=== PATIENT | male | born 1945 | race Caucasian/White ===

== ENCOUNTER 2023-04-04 13:37 | Inpatient (IN) ==
[2023-04-04 15:28] LABS: Basophils # (Auto) 0.07 K/mcL (0.00-0.30); Basophils % (Auto) 0.9 % (0.0-2.0); Eosinophils # (Auto) 0.05 K/mcL (0.00-0.70); Eosinophils % (Auto) 0.7 % (0.0-7.0); Hematocrit 40.3 % (40.1-51.0); Hemoglobin 14.9 g/dL (13.7-17.5); Lymphocytes # (Auto) 1.24 K/mcL (1.50-4.80); Lymphocytes % (Auto) 16.8 % (15.5-49.0); Mean Cell Volume 93.3 fL (80.0-100.0); Mean Platelet Volume 10.1 fL (8.8-12.5); Monocytes # (Auto) 0.67 K/mcL (0.10-0.90); Monocytes % (Auto) 9.1 % (1.0-12.0); Neutrophils % (Auto) 72.1 % (38.0-78.0); Platelet Count 212 K/mcL (140-440); RBC 4.32 M/mcL (4.63-6.08); Red Cell Distribution Width 12.6 % (11.5-14.5); WBC 7.4 K/mcL (4.5-11.0)
[2023-04-04 15:33] LABS: ALT/SGPT 16 U/L (<40); AST/SGOT 35 U/L (<40); Albumin 3.7 gm/dL (3.2-5.2); Albumin/Globulin Ratio 1.1 (1.0-2.3); Alkaline Phosphatase 135 U/L (39-117); Bilirubin,Total 2.1 mg/dL (0.1-1.0); Blood Urea Nitrogen 5 mg/dL (8-23); Calcium 9.3 mg/dL (8.6-10.4); Carbon Dioxide 20 mmol/L (22-30); Chloride 84 mmol/L (96-108); Globulin 3.4 gm/dL (2.2-3.7); Glomerular Filtration Rate 86; Glucose 102 mg/dL (70-105)
[2023-04-04] MEDS ORDERED: MAGNESIUM SULFATE 2 GM/50 ML BAG IV ONE (17:28)
[2023-04-04] MEDS ORDERED: CARBAMIDE PEROXIDE OTIC SOL 15ML AU ONE (17:30)
[2023-04-04] MEDS ORDERED: ACETAMINOPHEN 325 MG TABLET PO PRN (17:46)
[2023-04-04] MEDS ORDERED: ONDANSETRON 4 MG/2 ML VIAL IV PRN (17:46)
[2023-04-04] MEDS ORDERED: IPRATROPIUM/ALBUTEROL 3 ML AMPUL.NEB NEB PRN (17:46)
[2023-04-04] MEDS ORDERED: hydrALAZINE 20 MG/ML VIAL IV PRN (17:46)
[2023-04-04 18:25] LABS: Thyroid Stimulating Hormone 2.31 uIU/mL (0.27-5.01)
[2023-04-04] MEDS: 0.9 % SODIUM CHLORIDE 1,000 ML IV SCH (18:48)
[2023-04-04] MEDS: DOCUSATE SODIUM 100 MG CAPSULE PO SCH (20:26)
[2023-04-04] MEDS: 0.9 % SODIUM CHLORIDE 10 ML SYRINGE IV SCH (20:26)
[2023-04-05 01:14] LABS: Blood Urea Nitrogen 6 mg/dL (8-23); Carbon Dioxide 20 mmol/L (22-30); Chloride 91 mmol/L (96-108); Glomerular Filtration Rate 91; Glucose 103 mg/dL (70-105)
[2023-04-05] MEDS: 0.9 % SODIUM CHLORIDE 10 ML SYRINGE IV SCH ×3 (06:01→22:21)
[2023-04-05 06:43] LABS: Basophils # (Auto) 0.04 K/mcL (0.00-0.30); Basophils % (Auto) 0.8 % (0.0-2.0); Eosinophils # (Auto) 0.05 K/mcL (0.00-0.70); Hematocrit 38.3 % (40.1-51.0); Hemoglobin 13.7 g/dL (13.7-17.5); Lymphocytes # (Auto) 0.82 K/mcL (1.50-4.80); Lymphocytes % (Auto) 16.5 % (15.5-49.0); Mean Cell Volume 95.3 fL (80.0-100.0); Mean Corpuscular HGB Conc 35.8 g/dL (31.0-36.0); Mean Platelet Volume 9.8 fL (8.8-12.5); Monocytes # (Auto) 0.51 K/mcL (0.10-0.90); Monocytes % (Auto) 10.2 % (1.0-12.0); Neutrophils % (Auto) 71.1 % (38.0-78.0); Platelet Count 153 K/mcL (140-440); RBC 4.02 M/mcL (4.63-6.08); Red Cell Distribution Width 12.6 % (11.5-14.5)
[2023-04-05] MEDS: 0.9 % SODIUM CHLORIDE 1,000 ML IV SCH ×2 (06:57→19:18)
[2023-04-05 07:07] LABS: Blood Urea Nitrogen 6 mg/dL (8-23); Calcium 8.8 mg/dL (8.6-10.4); Carbon Dioxide 20 mmol/L (22-30); Chloride 95 mmol/L (96-108); Glomerular Filtration Rate 91; Glucose 97 mg/dL (70-105)
[2023-04-05] MEDS ORDERED: PANTOPRAZOLE 40 MG TABLET PO SCH (07:30)
[2023-04-05] MEDS ORDERED: METOPROLOL SUCCINATE 200 MG PO SCH (09:00)
[2023-04-05] MEDS ORDERED: guaiFENesin 600 MG TAB.SR.12H PO SCH (09:00)
[2023-04-05] MEDS ORDERED: LOSARTAN 50 MG TABLET PO SCH (09:00)
[2023-04-05] MEDS ORDERED: VALSARTAN 160 MG PO SCH (09:00)
[2023-04-05] MEDS ORDERED: IBUPROFEN 200 MG TABLET PO PRN (09:03)
[2023-04-05] MEDS: DOCUSATE SODIUM 100 MG CAPSULE PO SCH ×2 (09:35→19:18)
[2023-04-05] MEDS: SENNOSIDES 1 TABLET PO SCH (09:36)
[2023-04-05] MEDS: BUDESONIDE FORMOTEROL INH SCH ×2 (10:07→19:19)
[2023-04-05] MEDS: VITAMIN D3 25 MCG TABLET PO SCH (10:12)
[2023-04-05] MEDS: ASPIRIN 81 MG TAB.CHEW PO SCH (10:12)
[2023-04-05] MEDS: LEVOTHYROXINE 50 MCG TABLET PO SCH (10:12)
[2023-04-05] MEDS: ENOXAPARIN 40 MG/0.4 ML SYRINGE SQ SCH (10:12)
[2023-04-05] MEDS: OMEPRAZOLE 20 MG CAPSULE PO SCH (10:12)
[2023-04-05] MEDS: ALLOPURINOL 300 MG TABLET PO SCH (10:12)
[2023-04-05 13:46] LABS: Blood Urea Nitrogen 6 mg/dL (8-23); Calcium 8.9 mg/dL (8.6-10.4); Carbon Dioxide 23 mmol/L (22-30); Chloride 91 mmol/L (96-108); Glomerular Filtration Rate 86; Glucose 122 mg/dL (70-105)
[2023-04-05] MEDS ORDERED: guaiFENesin 100 MG/5 ML SYRUP PO PRN (14:51)
[2023-04-05] MEDS: METOPROLOL SUCCINATE 50 MG TAB.XL.24H PO SCH (15:18)
[2023-04-05] MEDS: OXYBUTYNIN CHLORIDE 5 MG TAB.XL.24H PO SCH (15:18)
[2023-04-05] MEDS: OLMESARTAN MEDOXOMIL 20 MG TABLET PO SCH (15:18)
[2023-04-05 18:43] LABS: Blood Urea Nitrogen 6 mg/dL (8-23); Calcium 8.8 mg/dL (8.6-10.4); Carbon Dioxide 24 mmol/L (22-30); Chloride 90 mmol/L (96-108); Glomerular Filtration Rate 86; Glucose 127 mg/dL (70-105)
[2023-04-06] MEDS: 0.9 % SODIUM CHLORIDE 10 ML SYRINGE IV SCH ×4 (04:09→21:44)
[2023-04-06 06:24] LABS: Basophils # (Auto) 0.04 K/mcL (0.00-0.30); Basophils % (Auto) 0.7 % (0.0-2.0); Eosinophils # (Auto) 0.06 K/mcL (0.00-0.70); Eosinophils % (Auto) 1.1 % (0.0-7.0); Hematocrit 37.3 % (40.1-51.0); Hemoglobin 13.2 g/dL (13.7-17.5); Lymphocytes # (Auto) 1.13 K/mcL (1.50-4.80); Mean Cell Volume 96.9 fL (80.0-100.0); Mean Corpuscular HGB Conc 35.4 g/dL (31.0-36.0); Mean Platelet Volume 9.7 fL (8.8-12.5); Monocytes # (Auto) 0.55 K/mcL (0.10-0.90); Monocytes % (Auto) 10.2 % (1.0-12.0); Neutrophils % (Auto) 66.6 % (38.0-78.0); Platelet Count 155 K/mcL (140-440); RBC 3.85 M/mcL (4.63-6.08); Red Cell Distribution Width 12.7 % (11.5-14.5); WBC 5.4 K/mcL (4.5-11.0)
[2023-04-06 07:00] LABS: Blood Urea Nitrogen 5 mg/dL (8-23); Calcium 8.5 mg/dL (8.6-10.4); Carbon Dioxide 20 mmol/L (22-30); Chloride 97 mmol/L (96-108); Glomerular Filtration Rate 91; Glucose 99 mg/dL (70-105)
[2023-04-06] MEDS: 0.9 % SODIUM CHLORIDE 1,000 ML IV SCH (08:45)
[2023-04-06] MEDS: SENNOSIDES 1 TABLET PO SCH (10:11)
[2023-04-06] MEDS: DOCUSATE SODIUM 100 MG CAPSULE PO SCH ×2 (10:11→20:24)
[2023-04-06] MEDS: OLMESARTAN MEDOXOMIL 20 MG TABLET PO SCH (10:25)
[2023-04-06] MEDS: VITAMIN D3 25 MCG TABLET PO SCH (10:26)
[2023-04-06] MEDS: ASPIRIN 81 MG TAB.CHEW PO SCH (10:26)
[2023-04-06] MEDS: METOPROLOL SUCCINATE 50 MG TAB.XL.24H PO SCH (10:26)
[2023-04-06] MEDS: ALLOPURINOL 300 MG TABLET PO SCH (10:27)
[2023-04-06] MEDS: OXYBUTYNIN CHLORIDE 5 MG TAB.XL.24H PO SCH (10:27)
[2023-04-06] MEDS: OMEPRAZOLE 20 MG CAPSULE PO SCH (10:28)
[2023-04-06] MEDS: LEVOTHYROXINE 50 MCG TABLET PO SCH (10:28)
[2023-04-06] MEDS: ENOXAPARIN 40 MG/0.4 ML SYRINGE SQ SCH (10:30)
[2023-04-06] MEDS: BUDESONIDE FORMOTEROL INH SCH ×2 (10:45→20:24)
[2023-04-06] MEDS: SODIUM CHLORIDE 1 GM TABLET PO SCH ×2 (16:17→20:24)
[2023-04-07] MEDS: 0.9 % SODIUM CHLORIDE 10 ML SYRINGE IV SCH ×3 (05:54→20:16)
[2023-04-07 07:03] LABS: Basophils # (Auto) 0.05 K/mcL (0.00-0.30); Basophils % (Auto) 0.9 % (0.0-2.0); Eosinophils # (Auto) 0.13 K/mcL (0.00-0.70); Eosinophils % (Auto) 2.2 % (0.0-7.0); Hematocrit 38.6 % (40.1-51.0); Hemoglobin 13.9 g/dL (13.7-17.5); Lymphocytes # (Auto) 1.21 K/mcL (1.50-4.80); Lymphocytes % (Auto) 20.9 % (15.5-49.0); Mean Cell Volume 96.3 fL (80.0-100.0); Mean Platelet Volume 9.7 fL (8.8-12.5); Monocytes % (Auto) 10.4 % (1.0-12.0); Neutrophils % (Auto) 65.3 % (38.0-78.0); Platelet Count 152 K/mcL (140-440); RBC 4.01 M/mcL (4.63-6.08); Red Cell Distribution Width 12.5 % (11.5-14.5); WBC 5.8 K/mcL (4.5-11.0)
[2023-04-07 08:10] LABS: Blood Urea Nitrogen 4 mg/dL (8-23); Carbon Dioxide 20 mmol/L (22-30); Chloride 95 mmol/L (96-108); Glomerular Filtration Rate 91; Glucose 90 mg/dL (70-105)
[2023-04-07] MEDS: OLMESARTAN MEDOXOMIL 20 MG TABLET PO SCH (09:09)
[2023-04-07] MEDS: VITAMIN D3 25 MCG TABLET PO SCH (09:09)
[2023-04-07] MEDS: LEVOTHYROXINE 50 MCG TABLET PO SCH (09:09)
[2023-04-07] MEDS: OMEPRAZOLE 20 MG CAPSULE PO SCH (09:09)
[2023-04-07] MEDS: ENOXAPARIN 40 MG/0.4 ML SYRINGE SQ SCH (09:09)
[2023-04-07] MEDS: SENNOSIDES 1 TABLET PO SCH (09:10)
[2023-04-07] MEDS: ASPIRIN 81 MG TAB.CHEW PO SCH (09:10)
[2023-04-07] MEDS: OXYBUTYNIN CHLORIDE 5 MG TAB.XL.24H PO SCH (09:10)
[2023-04-07] MEDS: METOPROLOL SUCCINATE 50 MG TAB.XL.24H PO SCH (09:10)
[2023-04-07] MEDS: BUDESONIDE FORMOTEROL INH SCH ×2 (09:10→20:16)
[2023-04-07] MEDS: ALLOPURINOL 300 MG TABLET PO SCH (09:10)
[2023-04-07] MEDS: SODIUM CHLORIDE 1 GM TABLET PO SCH ×3 (09:10→20:16)
[2023-04-07] MEDS: DOCUSATE SODIUM 100 MG CAPSULE PO SCH ×2 (09:10→20:16)
[2023-04-08] MEDS: 0.9 % SODIUM CHLORIDE 10 ML SYRINGE IV SCH ×3 (05:29→20:30)
[2023-04-08 07:23] LABS: Basophils # (Auto) 0.07 K/mcL (0.00-0.30); Basophils % (Auto) 1.2 % (0.0-2.0); Eosinophils # (Auto) 0.13 K/mcL (0.00-0.70); Eosinophils % (Auto) 2.2 % (0.0-7.0); Hematocrit 37.2 % (40.1-51.0); Hemoglobin 13.4 g/dL (13.7-17.5); Lymphocytes # (Auto) 1.37 K/mcL (1.50-4.80); Lymphocytes % (Auto) 23.3 % (15.5-49.0); Mean Cell Volume 96.4 fL (80.0-100.0); Mean Platelet Volume 9.9 fL (8.8-12.5); Monocytes # (Auto) 0.66 K/mcL (0.10-0.90); Monocytes % (Auto) 11.2 % (1.0-12.0); Neutrophils % (Auto) 61.6 % (38.0-78.0); Platelet Count 171 K/mcL (140-440); RBC 3.86 M/mcL (4.63-6.08); Red Cell Distribution Width 12.6 % (11.5-14.5); WBC 5.9 K/mcL (4.5-11.0)
[2023-04-08 07:59] LABS: Blood Urea Nitrogen 5 mg/dL (8-23); Calcium 9.3 mg/dL (8.6-10.4); Carbon Dioxide 18 mmol/L (22-30); Chloride 94 mmol/L (96-108); Glomerular Filtration Rate 91; Glucose 86 mg/dL (70-105)
[2023-04-08] MEDS: VITAMIN D3 25 MCG TABLET PO SCH (08:13)
[2023-04-08] MEDS: ASPIRIN 81 MG TAB.CHEW PO SCH (08:13)
[2023-04-08] MEDS: OLMESARTAN MEDOXOMIL 20 MG TABLET PO SCH (08:13)
[2023-04-08] MEDS: DOCUSATE SODIUM 100 MG CAPSULE PO SCH ×2 (08:13→20:29)
[2023-04-08] MEDS: OXYBUTYNIN CHLORIDE 5 MG TAB.XL.24H PO SCH (08:13)
[2023-04-08] MEDS: METOPROLOL SUCCINATE 50 MG TAB.XL.24H PO SCH (08:13)
[2023-04-08] MEDS: ENOXAPARIN 40 MG/0.4 ML SYRINGE SQ SCH (08:14)
[2023-04-08] MEDS: SENNOSIDES 1 TABLET PO SCH (08:14)
[2023-04-08] MEDS: OMEPRAZOLE 20 MG CAPSULE PO SCH (08:14)
[2023-04-08] MEDS: SODIUM CHLORIDE 1 GM TABLET PO SCH ×4 (08:14→20:28)
[2023-04-08] MEDS: LEVOTHYROXINE 50 MCG TABLET PO SCH (08:14)
[2023-04-08] MEDS: ALLOPURINOL 300 MG TABLET PO SCH (08:14)
[2023-04-08] MEDS: BUDESONIDE FORMOTEROL INH SCH ×2 (08:19→20:30)
[2023-04-08] MEDS: 0.9 % SODIUM CHLORIDE 1,000 ML IV SCH (16:37)
[2023-04-09] MEDS: 0.9 % SODIUM CHLORIDE 1,000 ML IV SCH (05:49)
[2023-04-09] MEDS: 0.9 % SODIUM CHLORIDE 10 ML SYRINGE IV SCH (05:49)
[2023-04-09 07:26] LABS: Basophils # (Auto) 0.05 K/mcL (0.00-0.30); Basophils % (Auto) 0.9 % (0.0-2.0); Eosinophils # (Auto) 0.14 K/mcL (0.00-0.70); Eosinophils % (Auto) 2.4 % (0.0-7.0); Hematocrit 40.7 % (40.1-51.0); Hemoglobin 14.6 g/dL (13.7-17.5); Lymphocytes % (Auto) 24.3 % (15.5-49.0); Mean Cell Volume 96.7 fL (80.0-100.0); Mean Corpuscular HGB Conc 35.9 g/dL (31.0-36.0); Mean Platelet Volume 9.9 fL (8.8-12.5); Monocytes % (Auto) 10.4 % (1.0-12.0); Neutrophils % (Auto) 61.7 % (38.0-78.0); Platelet Count 172 K/mcL (140-440); RBC 4.21 M/mcL (4.63-6.08); Red Cell Distribution Width 12.6 % (11.5-14.5); WBC 5.8 K/mcL (4.5-11.0)
[2023-04-09 07:49] LABS: Blood Urea Nitrogen 4 mg/dL (8-23); Calcium 9.1 mg/dL (8.6-10.4); Carbon Dioxide 22 mmol/L (22-30); Chloride 94 mmol/L (96-108); Glomerular Filtration Rate 91; Glucose 81 mg/dL (70-105)
[2023-04-09] MEDS: OLMESARTAN MEDOXOMIL 20 MG TABLET PO SCH (09:55)
[2023-04-09] MEDS: ENOXAPARIN 40 MG/0.4 ML SYRINGE SQ SCH (09:55)
[2023-04-09] MEDS: SODIUM CHLORIDE 1 GM TABLET PO SCH (09:56)
[2023-04-09] MEDS: LEVOTHYROXINE 50 MCG TABLET PO SCH (09:56)
[2023-04-09] MEDS: OXYBUTYNIN CHLORIDE 5 MG TAB.XL.24H PO SCH (09:56)
[2023-04-09] MEDS: SENNOSIDES 1 TABLET PO SCH (09:57)
[2023-04-09] MEDS: ASPIRIN 81 MG TAB.CHEW PO SCH (09:57)
[2023-04-09] MEDS: ALLOPURINOL 300 MG TABLET PO SCH (09:57)
[2023-04-09] MEDS: METOPROLOL SUCCINATE 50 MG TAB.XL.24H PO SCH (09:57)
[2023-04-09] MEDS: VITAMIN D3 25 MCG TABLET PO SCH (09:58)
[2023-04-09] MEDS: DOCUSATE SODIUM 100 MG CAPSULE PO SCH (09:58)
[2023-04-09] MEDS: OMEPRAZOLE 20 MG CAPSULE PO SCH (09:58)
[2023-04-09] MEDS: BUDESONIDE FORMOTEROL INH SCH (10:01)
[2023-04-09 11:16] VITALS: TEMP 98.1; O2SAT 99
== END 2023-04-09 13:13 | disposition home or self-care (01) | DRG 641 ==
LOC: ED 13:37 → ICU 17:42 → MEDSUR 04-06 21:30
PROVIDERS: ADMIT Internal Medicine; ATTEND Internal Medicine